=== PATIENT | male | born 1940 | race Native Hawaiian/Other Pacific Islander ===

== ENCOUNTER 2018-11-25 10:18 | Outpatient (CLI) | payer OTHER ==
[2018-12-21] MEDS ORDERED: ALBUSOL IN (09:03)
[2018-12-21] MEDS ORDERED: TYLENOL325 MG PO (09:04)
[2018-12-21] MEDS ORDERED: AZIT250T3 PO (09:05)
[2018-12-21] MEDS ORDERED: ESCI10TA PO (09:06)
[2018-12-21] MEDS ORDERED: VITAMIN D50000 UNIT PO (09:06)
[2018-12-21] MEDS ORDERED: LIDOPATCH TOP (09:06)
[2018-12-21] MEDS ORDERED: MAGNSUS68 PO (09:06)
[2018-12-21] MEDS ORDERED: RISP0.25 PO (09:07)
[2018-12-21] MEDS ORDERED: ONDA4TAB3 PO (09:07)
[2018-12-21] MEDS ORDERED: TRAZ50TA36 PO (09:08)
[2018-12-21] MEDS ORDERED: CYAN10009 IM (09:08)
== END 2018-11-25 10:28 | disposition short-term general hospital (02) ==
LOC: AMB 10:18
DX: M25.512 Pain in left shoulder (principal); T14.8XXA Other injury of unspecified body region, initial encounter; R46.0 Very low level of personal hygiene; W18.39XA Other fall on same level, initial encounter; Y93.89 Activity, other specified; Y92.89 Other specified places as the place of occurrence of the external cause
CPT/HCPCS: A0425; A0427

== ENCOUNTER 2018-11-25 10:33 | Inpatient (IN) | payer OTHER ==
[~2018-11-25] VITALS: Ht 175.3 cm; Wt 77.8 kg
[2018-11-25 10:40] VITALS: BP 114/84; TEMP 98.1
[2018-11-25 10:53] LABS: PLATELET COUNT 280 K/uL (142-355)
[2018-11-25 11:03] LABS: POTASSIUM 3.7 mmol/L (3.6-5.2); SODIUM 141 mmol/L (136-145)
[2018-11-25 15:30] VITALS: BP 10/56; TEMP 97.5; Ht 175.3 cm; Wt 77.8 kg
[2018-11-25 15:43] VITALS: BP 110/56; TEMP 97.5
[2018-11-25 20:00] VITALS: BP 118/53; TEMP 97.8
[2018-11-26] VITALS: BP 123/65; TEMP 98.4
[2018-11-26 04:00] VITALS: BP 148/77; TEMP 97.4
[2018-11-26 05:07] LABS: PLATELET COUNT 174 K/uL (142-355)
[2018-11-26 05:47] LABS: POTASSIUM 3.8 mmol/L (3.6-5.2)
[2018-11-26 08:00] VITALS: BP 160/79; TEMP 97.3
[2018-11-26 12:00] VITALS: BP 115/70; TEMP 97.6
[2018-11-26 16:00] VITALS: BP 116/68; TEMP 99.2
[2018-11-26 20:00] VITALS: BP 102/57; TEMP 98.1
[2018-11-27] VITALS: BP 120/70; TEMP 98.5
[2018-11-27 03:58] VITALS: BP 116/66; TEMP 98.4
[2018-11-27 07:10] LABS: PLATELET COUNT 144 K/uL (142-355)
[2018-11-27 07:34] LABS: POTASSIUM 3.6 mmol/L (3.6-5.2)
[2018-11-27 08:00] VITALS: BP 146/80; TEMP 97.6
[2018-11-27 12:00] VITALS: BP 139/64; TEMP 97.4
[2018-11-27 16:00] VITALS: BP 110/59; TEMP 98
[2018-11-27 20:00] VITALS: BP 123/51; TEMP 98.6
[2018-11-28] VITALS (7 sets, daily range): BP systolic 94–136; BP diastolic 55–68; TEMP 97.3–98.5
[2018-11-29 04:00] VITALS: BP 100/65; TEMP 98.3
[2018-11-29 08:00] VITALS: BP 106/63; TEMP 97.5
[2018-11-29 12:00] VITALS: BP 121/56; TEMP 98.1
[2018-11-29 16:00] VITALS: BP 121/70; TEMP 97.4
[2018-11-29 20:00] VITALS: BP 128/72; TEMP 98.7
[2018-11-30] VITALS: BP 125/73; TEMP 98.1
[2018-11-30 04:00] VITALS: BP 145/75; TEMP 97.5
[2018-11-30 08:00] VITALS: BP 128/74; TEMP 97.7
== END 2018-11-30 11:55 | disposition swing bed (61) | DRG 682 ==
LOC: ED 10:33 → MED/SURG 11:30
PROVIDERS: Internal Medicine; ADMIT Family Medicine
DX: N17.8 Other acute kidney failure (principal); J18.8 Other pneumonia, unspecified organism; M62.82 Rhabdomyolysis; J44.0 Chronic obstructive pulmonary disease with (acute) lower respiratory infection; R62.7 Adult failure to thrive; R26.89 Other abnormalities of gait and mobility; D72.828 Other elevated white blood cell count; H91.8X9 Other specified hearing loss, unspecified ear; R39.2 Extrarenal uremia
CPT/HCPCS: 36415; 80048; 80053; 81000; 82140; 82550; 82553; 82570; 84300; 84443; 84484; 85027; 93005; 94640; 94664; 94760; 96360; 99284; J1956

== ENCOUNTER 2018-11-30 11:55 | Inpatient (IN) | payer OTHER ==
[~2018-11-30] VITALS: Ht 175.3 cm; Wt 71.9 kg
[2018-12-01 08:00] VITALS: BP 121/67; TEMP 97.74
[2018-12-01 20:00] VITALS: BP 101/57; TEMP 98.2
[2018-12-02 08:00] VITALS: BP 127/91; TEMP 98.7
[2018-12-02] MEDS ORDERED: ONDA4TAB3 PO (16:51)
[2018-12-02] MEDS ORDERED: MAGNSUS68 PO (16:52)
[2018-12-02] MEDS ORDERED: TYLENOL325 MG PO (16:54)
[2018-12-02] MEDS ORDERED: ALBUSOL IN (16:55)
== END 2018-12-02 15:30 | disposition other institution (70) | DRG 556 ==
LOC: MED/SURG 11:55
PROVIDERS: ADMIT Internal Medicine
DX: M62.81 Muscle weakness (generalized) (principal); M62.82 Rhabdomyolysis; N17.8 Other acute kidney failure; F03.91 Unspecified dementia, unspecified severity, with behavioral disturbance; E46 Unspecified protein-calorie malnutrition; Z91.81 History of falling; R26.89 Other abnormalities of gait and mobility; J44.9 Chronic obstructive pulmonary disease, unspecified
CPT/HCPCS: 94760